=== PATIENT | female | born 1960 | race African-American/Black ===

== ENCOUNTER 2019-09-12 10:43 | Emergency (ER) | payer MEDICARE, MEDICAID, SELFPAY ==
[2019-09-12 10:49] VITALS: BP 125/68; PULSE 70; RESP 18; TEMP 36.9; O2SAT 100
[2019-09-12] MEDS: SODIUM CHLORIDE 0.9% IV 1,000 ML 999 ML IV CONT (12:02)
[2019-09-12] MEDS: FAMOTIDINE 20 MG/2 ML VIAL IV PUSH (12:04)
[2019-09-12] MEDS: methylPREDNISolone SOD SUCC 125 MG VIAL IV PUSH (12:05)
--- NOTE | 2019-09-12 12:07 | ED.ALLEREA ---
HPI - Allergic Reaction General Chief complaint: Allergic Reaction Stated complaint: Swelling top lip Time Seen by Provider: 09/12/19 11:19 Source: patient Mode of arrival: ambulatory Limitations: no limitations History of Present Illness HPI narrative: Patient is a 58-year-old female who presents to emergency department for evaluation of upper lip swelling where she notes some mild discomfort of the lip patient denies injury trauma recent illness or similar occurrence. Patient not taken anything for her symptoms. On arrival per private vehicle patient in the room in no distress. Patient unsure as to any potential causes. Related Data Allergies Allergy/AdvReac Type Severity Reaction Status Date / Time iohexol Allergy Severe Swelling Verified 09/12/19 11:31 [From contrast - CT, X-RAY] of Lip/Tongue/Throat shellfish derived Allergy Severe Swelling Verified 09/12/19 11:31 of Lip/Tongue/Throat latex Allergy Unknown SWELLING/RA Verified 09/12/19 10:51 Review of Systems Review of Systems: All systems reviewed & are unremarkable except as noted in HPI and below PMFSH Past Medical History Medical History (Updated 09/12/19 @ 12:54 by Dio Miller PA-C) Hypertension Social History Social History (Updated 09/12/19 @ 12:09 by Dio Miller PA-C) Smoking status: Never smoker Gender identity (if verbalized by the patient): Female Exam Narrative: Exam Narrative: GENERAL: Well-appearing, well-nourished, and in no acute distress. HEAD: Normocephalic, atraumatic. EYES: PERRLA and EOMI. ENT: Nares clear, no rhinorrhea or epistaxis. Mucous membranes moist. Angioedema of the upper lip oropharynx without tonsillar hypertrophy exudate or other lesions. Bilateral TMs pearly woods nonbulging. No angioedema in the oropharynx NECK: Supple. No adenopathy or masses. No stridor CHEST: Clear to auscultation. No respiratory distress. No wheezes rales or rhonchi HEART: Regular rate and rhythm. No murmur heard. EXTREMITIES: Normal range of motion. No edema. SKIN: Warm, dry, no rash. NEURO: No focal deficits. Alert and oriented x3. PSYCH: Normal mood and affect. Course Consultations Consultation #1: Spoke with Dr. Murguia primary care who would like the patient to hold the medication lisinopril and to follow in clinic will also agreed to be placed on steroids and antihistamines Date: 09/12/19 Vital Signs Vital signs: Vital Signs Temperature 98.5 F 09/12/19 10:49 Pulse Rate 70 09/12/19 10:49 Respiratory Rate 18 09/12/19 10:49 Blood Pressure 125/68 09/12/19 10:49 Pulse Oximetry 100 09/12/19 10:49 Temperature 98.5 F 09/12/19 10:49 Pulse Rate 62 09/12/19 12:11 Respiratory Rate 23 H 09/12/19 12:11 Blood Pressure 107/74 09/12/19 12:11 Pulse Oximetry 98 09/12/19 12:11 Discharge Plan Discharge Clinical Impression: Angioedema Patient Disposition: Home, Self-Care Condition: Stable Instructions: Antibiotic Form, Angioedema (ED) Additional Instructions: Follow up with your primary care provider within 1-2 days to set up for reevaluation. Go to ER for shortness of breath, difficulty breathing, chest pain, fever/chills, weakness, nauseau/vomitting, unable to swallow or open the mouth etc. or any other concerns. Discontinue taking lisinopril Take any prescribed medications as directed. Follow patient education sheets If you do not have a drug allergy to tylenol or motrin and can tolerate it then take tylenol or motrin as needed for discomfort/pain. Prescriptions: New epinephrine [EpiPen 2-Anton] 0.3 mg/0.3 mL auto-injector 0.3 ml SUB-Q ONCE Qty: 2 RF: 0 prednisone 20 mg tablet 20 mg PO BID 4 Days Qty: 8 RF: 0 ranitidine HCl [Zantac] 150 mg tablet 150 mg PO BID Qty: 10 RF: 0 cetirizine [Zyrtec] 10 mg tablet 10 mg PO DAILY PRN (Reason: allergy symptoms) Qty: 10 RF: 0 Follow-up/Referrals: UNKNOWN,DOCTOR [Primary Care Prov
[2019-09-12 12:11] VITALS: BP 107/74; PULSE 62; RESP 23; O2SAT 98
[2019-09-12 13:52] VITALS: BP 114/71; PULSE 71; RESP 23; O2SAT 99
== END 2019-09-12 13:55 | disposition home or self-care (01) ==
PROVIDERS: Emergency Provider Emergency Medicine
DX: T78.3XXA Angioneurotic edema, initial encounter (principal); I10 Essential (primary) hypertension
CPT/HCPCS: 96361; 96374; 96375; 99284; J1200; J2930; J7030

== ENCOUNTER 2020-05-30 10:36 | Emergency (ER) | payer MEDICARE, MEDICAID, SELFPAY ==
--- NOTE | ~2020-05-30 | XR_ITS ---
EXAMINATION: XR chest 1V portable DATE: 05/30/2020 11:32 INDICATION: Fever and cough. TECHNIQUE: A single frontal view of the chest was obtained. COMPARISON: Chest 2 views 06/07/2018 FINDINGS: The chest demonstrates clear lungs without pneumonia, pleural effusion, or pneumothorax. Th e heart size is normal. IMPRESSION: 1. No acute cardiopulmonary disease. Reviewed, dictated and finalized at location A. NOSTIC TECH
[2020-05-30 10:43] VITALS: BP 121/62; PULSE 98; RESP 20; TEMP 36.4; O2SAT 97
--- NOTE | 2020-05-30 11:29 | PC.NURSE ---
Introduced to patient, bedside report from off-going RN.
--- NOTE | 2020-05-30 11:32 | ED.URI ---
HPI - URI/Sore Throat General Chief Complaint: Upper Respiratory Infection Stated Complaint: chills, fever, headache Time Seen by Provider: 05/30/20 11:02 Source: patient Mode of arrival: ambulatory Limitations: no limitations History of Present Illness HPI Narrative: This is a 59-year-old female that presents the emergency department for fever since yesterday. Reports fatigue and congestion as well. Reports headaches. Reports her grandchildren are currently being tested for Covid. Denies cough, chest pain, lower extremity edema, or shortness of breath. Related Data Home Medications Medication Instructions Recorded Confirmed amitriptyline 50 mg PO HS 05/30/20 05/30/20 cyclobenzaprine 10 mg PO DAILY PRN 05/30/20 05/30/20 hydrocodone-acetaminophen 1 tablet PO DAILY PRN 05/30/20 05/30/20 isosorbide mononitrate 30 mg PO DAILY 05/30/20 05/30/20 metformin 500 mg PO BID 05/30/20 05/30/20 metoprolol succinate 50 mg PO 05/30/20 naproxen 500 mg PO BID PRN 05/30/20 05/30/20 sertraline 200 mg PO DAILY 05/30/20 05/30/20 simvastatin 40 mg PO DAILY 05/30/20 05/30/20 topiramate 50 mg PO DAILY 05/30/20 05/30/20 Allergies Allergy/AdvReac Type Severity Reaction Status Date / Time iohexol Allergy Severe Swelling Verified 05/30/20 10:49 [From contrast - CT, X-RAY] of Lip/Tongue/Throat shellfish derived Allergy Severe Swelling Verified 05/30/20 10:49 of Lip/Tongue/Throat latex Allergy Unknown SWELLING/RA Verified 05/30/20 10:49 Review of Systems Review of Systems: Narrative: CONSTITUTIONAL: Denies fever ENT: Reports congestion. Denies sore throat CARDIOVASCULAR: Denies chest pain, or edema. RESPIRATORY: Denies cough or dyspnea. GASTROINTESTINAL: Denies abdominal pain, nausea, vomiting GENITOURINARY: Denies dysuria All systems reviewed & are unremarkable except as noted in HPI and below PMFSH Past Medical History Medical History (Updated 05/30/20 @ 16:38 by Alissa Lopez PA-C) History of diabetes mellitus History of hyperlipidemia Hypertension Social History Social History (Updated 09/12/19 @ 12:09 by Dio Miller PA-C) Smoking status: Never smoker Gender identity (if verbalized by the patient): Female Exam Narrative: Exam Narrative: GENERAL: Well-appearing, obese, and in no acute distress. HEAD: Normocephalic, atraumatic. EYES: EOMI. ENT: Nares clear, no rhinorrhea or epistaxis. Mucous membranes moist. Oropharynx without tonsillar hypertrophy exudate or other lesions. Bilateral TMs pearly woods non-bulging NECK: Supple. No adenopathy or masses. CHEST: Clear to auscultation. No respiratory distress. No wheezes rales or rhonchi HEART: Regular rate and rhythm. No murmur heard. Normal peripheral pulses. ABDOMEN: Soft, nontender, nondistended, normal active bowel sounds. EXTREMITIES: Normal range of motion. No edema. SKIN: Warm, dry, no rash. NEURO: No focal deficits. Alert and oriented x3. PSYCH: Normal mood and affect Course Vital Signs Vital signs: Vital Signs Temperature 97.5 F L 05/30/20 10:43 Pulse Rate 98 05/30/20 10:43 Respiratory Rate 20 05/30/20 10:43 Blood Pressure 121/62 05/30/20 10:43 Pulse Oximetry 97 05/30/20 10:43 Temperature 98.4 F 05/30/20 16:28 Pulse Rate 79 05/30/20 16:28 Respiratory Rate 18 05/30/20 16:28 Blood Pressure 136/86 05/30/20 16:28 Pulse Oximetry 100 05/30/20 16:28 MDM - URI/Sore Throat MDM Narrative Medical decision making narrative: Patient presents to the emergency department for cold symptoms since yesterday. Reports her grandchildren are currently being tested for coronavirus. She is afebrile and nontoxic-appearing. Oxygen saturation has remained normal on room air. CBC with mild leukocytosis to 13.8. Metabolic panel without concerning findings. Lactic acid is not elevated. UA without evidence of infection. Chest x-ray is clear. SARS-CoV-2 was sent. Patient is stable and felt appropriate for [facility]
[2020-05-30 11:56] LABS: Basophils Absolute Auto 0.1 K/mm3 (0.0-0.1); Basophils Percent Auto 0.4 % (0.2-1.2); Eosinophils Percent Auto 0.1 % (0-4.4); Hematocrit 36.3 % (37.0-47.0); Hemoglobin 12.2 g/dL (12.0-15.0); Immature Granulocyte Absolute 0.06 K/mm3 (0.00-0.031); Immature Granulocyte Percent A 0.4 % (0-0.5); Lymphocytes Absolute Auto 0.46 K/mm3 (0.9-3.2); Lymphocytes Percent Auto 3.3 % (18.3-44.2); Mean Corpuscular HGB Conc 33.6 g/dl (32-36); Mean Corpuscular Hemoglobin 26.9 pg (26-34); Mean Corpuscular Volume 80.1 fl (80-100); Mean Platelet Volume 9.5 fl (7.4-10.4); Monocytes Absolute Auto 0.6 K/mm3 (0.1-0.6); Neutrophils Absolute Auto 12.7 K/mm3 (1.3-6.7); Neutrophils Percent Auto 91.8 % (45.5-73.1); Platelet Count Result 228 k/mm3 (150-375); Red Blood Count 4.53 M/mm3 (4.2-5.4); Red Cell Distribution Width 15.3 % (11.5-14.5); White Blood Count 13.8 K/mm3 (4.5-10.0)
[2020-05-30 12:10] LABS: Lactic Acid Reflex 0.8 mmol/L (0.7-2.1)
[2020-05-30 12:13] LABS: Alanine Aminotransferase 19 U/L (4-35); Albumin Level 3.8 g/dL (3.5-5.1); Alkaline Phosphatase 108 U/L (38-126); Anion Gap 9 mmol/L (8-16); Aspartate Amino Transferase 21 U/L (14-36); Bilirubin,Total 0.5 mg/dL (0.2-1.3); Blood Urea Nitrogen 15 mg/dL (7-17); Calcium 8.6 mg/dL (8.4-10.2); Carbon Dioxide 20 mmol/L (22-30); Chloride 107 mmol/L (98-107); Estimated Glomerular Filt Rate > 60; Glucose 136 mg/dL (65-105); Potassium 3.8 mmol/L (3.4-5.0); Sodium 136 mmol/L (137-145)
--- NOTE | 2020-05-30 12:31 | PC.NURSE ---
Patient is on commode attempting to provided urine at this time.
[2020-05-30 12:32] VITALS: BP 104/63; PULSE 83; RESP 22; TEMP 36.1; O2SAT 95
--- NOTE | 2020-05-30 12:36 | PC.NURSE ---
covid swab sent to lab. Patient remains on beside commode to attempt to provide urine. Call light with patient. Haig[place] provided for patient comfort.
[2020-05-30 12:46] LABS: CRP 19.1 mg/dL (<1.0)
[2020-05-30 14:06] VITALS: BP 99/56; PULSE 75; RESP 22; O2SAT 97
[2020-05-30 14:53] VITALS: BP 104/69; PULSE 77; RESP 21; TEMP 36.3; O2SAT 97
[2020-05-30] MEDS: SODIUM CHLORIDE 0.9% IV 1,000 ML 999 ML IV CONT (14:55)
[2020-05-30 15:00] VITALS: O2SAT 97
[2020-05-30 16:28] VITALS: BP 136/86; PULSE 79; RESP 18; TEMP 36.9; O2SAT 100
[2020-05-30 16:30] LABS: Add Urine Microscopic? NO; Appearance Urine Clear (Clear); Bilirubin Urine Negative (Negative); Blood Urine Negative (Negative); Color Urine Straw (Yellow); Glucose Urine UA Negative (Negative); Ketones Urine Negative (Negative); Leukocyte Esterase Ur Negative LEU/UL (Negative); Nitrate Urine Negative (Negative); Protein Urine Negative (Negative); Specific Grav Ur 1.008 (1.001-1.035); Urobilinogen Urine Negative mg/dL (<2.0)
[2020-05-30 21:18] LABS: SARS-CoV-2 RNA PCR Negative
== END 2020-05-30 16:48 | disposition home or self-care (01) ==
PROVIDERS: Physician Assistant; Emergency Provider Emergency Medicine; PCP Family Medicine
DX: R50.9 Fever, unspecified (principal); Z20.828 Contact with and (suspected) exposure to other viral communicable diseases; E11.9 Type 2 diabetes mellitus without complications; E78.5 Hyperlipidemia, unspecified; I10 Essential (primary) hypertension
CPT/HCPCS: 36415; 71045; 80053; 81003; 83605; 85025; 86140; 87635; 96360; 96361; 99283; 99284; C9803; J7030; U0003

== ENCOUNTER 2021-04-28 03:46 | Emergency (ER) | payer MEDICARE, MEDICAID, SELFPAY ==
[2021-04-28] VITALS (19 sets, daily range): BP systolic 121–148; BP diastolic 60–86; PULSE 81; RESP 18; TEMP 37.1; O2SAT 96–100
--- NOTE | ~2021-04-28 | XR_ITS ---
XR chest 2V DATE: 04/28/2021 05:53 INDICATION: Shortness of breath TECHNIQUE: PA and lateral views COMPARISON: 05/30/2020 portable AP chest FINDINGS: Normal heart size. Is aortic arch calcification and mild aortic unfolding. No hilar or medi astinal enlargement. No pulmonary infiltrate or consolidation, pleural effusion or pulmonary vascular congestion or pneumo thorax. IMPRESSION: No active cardiopulmonary disease Aortic atherosclerosis Reviewed, dictated and finalized at location A.
[2021-04-28] MEDS: SODIUM CHLORIDE 0.9% IV 1,000 ML 999 ML IV CONT (05:34)
[2021-04-28 05:41] LABS: Basophils Percent Auto 0.4 % (0.2-1.2); Eosinophils Absolute Auto 0.2 K/mm3 (0-0.3); Eosinophils Percent Auto 2.8 % (0-4.4); Hematocrit 38.1 % (37.0-47.0); Hemoglobin 12.5 g/dL (12.0-15.0); Immature Granulocyte Absolute 0.02 K/mm3 (0.00-0.031); Immature Granulocyte Percent A 0.3 % (0-0.5); Lymphocytes Absolute Auto 1.81 K/mm3 (0.9-3.2); Mean Corpuscular HGB Conc 32.8 g/dl (32-36); Mean Corpuscular Hemoglobin 26.3 pg (26-34); Mean Corpuscular Volume 80.2 fl (80-100); Mean Platelet Volume 9.9 fl (7.4-10.4); Monocytes Absolute Auto 0.7 K/mm3 (0.1-0.6); Monocytes Percent Auto 9.1 % (2.6-8.5); Neutrophils Absolute Auto 4.5 K/mm3 (1.3-6.7); Neutrophils Percent Auto 62.4 % (45.5-73.1); Platelet Count Result 324 k/mm3 (150-375); Red Blood Count 4.75 M/mm3 (4.2-5.4); Red Cell Distribution Width 15.2 % (11.5-14.5); White Blood Count 7.3 K/mm3 (4.5-10.0)
[2021-04-28 05:50] LABS: Alanine Aminotransferase 24 U/L (4-35); Alkaline Phosphatase 90 U/L (38-126); Anion Gap 6 mmol/L (8-16); Aspartate Amino Transferase 22 U/L (14-36); Bilirubin,Total 0.3 mg/dL (0.2-1.3); Blood Urea Nitrogen 12 mg/dL (7-17); Calcium 9.2 mg/dL (8.4-10.2); Carbon Dioxide 26 mmol/L (22-30); Chloride 107 mmol/L (98-107); Estimated CRCL calculation 92 ml/min; Estimated Glomerular Filt Rate > 60; Glucose 188 mg/dL (65-110); Potassium 3.9 mmol/L (3.4-5.0); Sodium 139 mmol/L (137-145)
--- NOTE | 2021-04-28 07:38 | ED.WEAKNESS ---
HPI - Weakness General Chief complaint: Weakness <Avelino Monroe MD - Last Filed: 04/28/21 18:58> Stated complaint: light headed <Avelino Monroe MD - Last Filed: 04/28/21 18:58> Time Seen by Provider: 04/28/21 05:08 <Avelino Monroe MD - Last Filed: 04/28/21 18:58> Source: patient <Avelino Monroe MD - Last Filed: 04/28/21 18:58> History of Present Illness HPI Narrative: Patient presents with not feeling well. Patient ports. She reports she is feeling light headed. She also reports some mild shortness of breath is improving. She denies any focal areas of pain such as chest pain or abdominal pain she denies recent cough or fevers. She denies any urinary symptoms. She does report she does not feel well so wanted to come in and be evaluated. Denies any recent changes in appetite <Avelino Monroe MD - Last Filed: 04/28/21 18:58> Related Data Home medications: Home Medications Medication Instructions Recorded Confirmed amitriptyline 50 mg PO HS 05/30/20 05/30/20 cyclobenzaprine 10 mg PO DAILY PRN 05/30/20 05/30/20 hydrocodone-acetaminophen 1 tablet PO DAILY PRN 05/30/20 05/30/20 isosorbide mononitrate 30 mg PO DAILY 05/30/20 05/30/20 metformin 500 mg PO BID 05/30/20 05/30/20 metoprolol succinate 50 mg PO 05/30/20 naproxen 500 mg PO BID PRN 05/30/20 05/30/20 sertraline 200 mg PO DAILY 05/30/20 05/30/20 simvastatin 40 mg PO DAILY 05/30/20 05/30/20 topiramate 50 mg PO DAILY 05/30/20 05/30/20 <Avelino Monroe MD - Last Filed: 04/28/21 18:58> Allergies/Adverse reactions: Allergies Allergy/AdvReac Type Severity Reaction Status Date / Time iohexol Allergy Severe Swelling Verified 04/28/21 04:38 [From contrast - CT, X-RAY] of Lip/Tongue/Throat shellfish derived Allergy Severe Swelling Verified 04/28/21 04:38 of Lip/Tongue/Throat latex Allergy Unknown SWELLING/RA Verified 04/28/21 04:38 SH <Avelino Monroe MD - Last Filed: 04/28/21 18:58> Review of Systems Review of Systems: CONSTITUTIONAL: Denies fever, chills, or sweats. EYES: Denies visual changes, redness, or discharge. ENT: Denies rhinorrhea, congestion, sore throat, or otalgia. CARDIOVASCULAR: Denies chest pain, palpitations, or edema. RESPIRATORY: Denies cough GASTROINTESTINAL: Denies abdominal pain, nausea, vomiting, or diarrhea. GENITOURINARY: Denies dysuria or hematuria. SKIN: Denies rash or itching. MUSCULOSKELETAL: Denies back pain, joint pain, or myalgia. NEUROLOGIC: Denies headache, numbness, or focal weakness. PSYCHIATRIC: Denies anxiety or depression. <Avelino Monroe MD - Last Filed: 04/28/21 18:58> All systems reviewed & are unremarkable except as noted in HPI and below <Avelino Monroe MD - Last Filed: 04/28/21 18:58> PMFSH Past Medical History Medical History: Medical History History of diabetes mellitus History of hyperlipidemia Hypertension <Avelino Monroe MD - Last Filed: 04/28/21 18:58> Social History Social History: Social History Smoking status: Never smoker Gender identity (if verbalized by the patient): Female <Avelino Monroe MD - Last Filed: 04/28/21 18:58> Exam Narrative: GENERAL: Well-appearing, well-nourished, and in no acute distress. HEAD: Normocephalic, atraumatic. EYES: PERRLA and EOMI. ENT: Nares clear, no rhinorrhea or epistaxis. Mucous membranes moist. NECK: Supple. No masses. No JVD CHEST: Clear to auscultation. No respiratory distress. No wheezes rales or rhonchi HEART: Regular rate and rhythm. No murmur heard. Normal peripheral pulses. ABDOMEN: Soft, nontender, nondistended, normal active bowel sounds. EXTREMITIES: Normal range of motion. No edema. SKIN: Warm, dry, no rash. NEURO: No focal deficits. Alert and oriented x3. PSYCH: Normal mood and affect. <Avelino Monroe MD - Last Filed: 04/28/
[2021-04-28 07:59] LABS: Add Urine Microscopic? YES; Appearance Urine Clear (Clear); Bacteria Urine Trace /hpf; Bilirubin Urine Negative (Negative); Blood Urine Negative (Negative); Color Urine Yellow (Yellow); Glucose Urine UA 2+ mg/dL (Negative); Ketones Urine Negative (Negative); Leukocyte Esterase Ur Negative LEU/UL (Negative); Nitrate Urine Negative (Negative); Protein Urine Negative (Negative); RBC Urine 0-2 /hpf (0-2); Specific Grav Ur 1.011 (1.001-1.035); Squamous Epithelial Cell Urine Rare /hpf (Few); Urobilinogen Urine Negative mg/dL (<2.0); WBC Urine 0-3 /hpf
== END 2021-04-28 08:18 | disposition home or self-care (01) ==
PROVIDERS: Emergency Medicine; Emergency Provider Family Medicine; PCP Family Medicine
DX: R53.1 Weakness (principal); E11.9 Type 2 diabetes mellitus without complications; E78.5 Hyperlipidemia, unspecified; I10 Essential (primary) hypertension; Z79.84 Long term (current) use of oral hypoglycemic drugs
CPT/HCPCS: 36415; 71046; 80053; 81001; 85025; 96360; 99283; J7030

== ENCOUNTER 2021-10-23 02:03 | Emergency (ER) | payer MEDICARE, MEDICAID, SELFPAY ==
[2021-10-23] VITALS (11 sets, daily range): BP systolic 128–169; BP diastolic 82–88; PULSE 61–69; RESP 15–23; TEMP 36.3; O2SAT 98–100
--- NOTE | ~2021-10-23 | CT_ITS ---
EXAMINATION: CT brain wo con INDICATION: Headache COMPARISON: None TECHNIQUE: Standard unenhanced head CT. The dose-length product (DLP) was 605.33 mGy-cm. The mA was a djusted according to patient size. Iterative reconstruction technique was employed. FINDINGS: There is no intracranial hemorrhage, acute infarction, or abnormal mass lesion. The ventric les are normal. There is no abnormal mass effect or midline shift. The woods-white matter differentiat ion is normal. The basal cisterns are patent. The orbits are normal. The paranasal sinuses, mastoids and calvarium are normal. IMPRESSION: 1. No acute intracranial abnormality. Reviewed, dictated and finalized at location A.
[2021-10-23] MEDS: KETOROLAC 30 MG/ML VIAL (*BKC) IV PUSH (02:25)
[2021-10-23] MEDS: SODIUM CHLORIDE 0.9% IV 1,000 ML 999 ML IV CONT (02:25)
[2021-10-23] MEDS: MECLIZINE HCL 25 MG TABLET PO (02:26)
[2021-10-23 02:34] LABS: Basophils Absolute Auto 0.1 K/mm3 (0.0-0.1); Basophils Percent Auto 0.7 % (0.2-1.2); Eosinophils Absolute Auto 0.2 K/mm3 (0-0.3); Eosinophils Percent Auto 3.2 % (0-4.4); Hematocrit 41.7 % (37.0-47.0); Hemoglobin 13.1 g/dL (12.0-15.0); Immature Granulocyte Absolute 0.02 K/mm3 (0.00-0.031); Immature Granulocyte Percent A 0.3 % (0-0.5); Lymphocytes Absolute Auto 2.68 K/mm3 (0.9-3.2); Lymphocytes Percent Auto 35.4 % (18.3-44.2); Mean Corpuscular HGB Conc 31.4 g/dl (32-36); Mean Corpuscular Hemoglobin 25.5 pg (26-34); Mean Corpuscular Volume 81.3 fl (80-100); Mean Platelet Volume 9.6 fl (7.4-10.4); Monocytes Absolute Auto 0.5 K/mm3 (0.1-0.6); Monocytes Percent Auto 7.1 % (2.6-8.5); Neutrophils Absolute Auto 4.1 K/mm3 (1.3-6.7); Neutrophils Percent Auto 53.3 % (45.5-73.1); Platelet Count Result 326 k/mm3 (150-375); Red Blood Count 5.13 M/mm3 (4.2-5.4); White Blood Count 7.6 K/mm3 (4.5-10.0)
[2021-10-23 02:43] LABS: Alanine Aminotransferase 22 U/L (4-35); Albumin Level 4.1 g/dL (3.5-5.1); Alkaline Phosphatase 107 U/L (38-126); Anion Gap 5 mmol/L (8-16); Aspartate Amino Transferase 22 U/L (14-36); Bilirubin,Total 0.2 mg/dL (0.2-1.3); Blood Urea Nitrogen 14 mg/dL (7-17); Calcium 8.8 mg/dL (8.4-10.2); Carbon Dioxide 29 mmol/L (22-30); Chloride 104 mmol/L (98-107); Estimated CRCL calculation 71 ml/min; Estimated Glomerular Filt Rate > 60; Glucose 83 mg/dL (65-110); Potassium 3.6 mmol/L (3.4-5.0); Sodium 138 mmol/L (137-145)
--- NOTE | 2021-10-23 03:52 | ED.GENADULT ---
HPI - General Adult General Chief complaint: Unspecified Stated complaint: MEDICATION MIX UP? Time Seen by Provider: 10/23/21 02:09 History of Present Illness HPI narrative: Patient is a 61-year-old female who presents ER with dizziness. Began tonight. Feels like things are moving. Associate with some mild nausea. Worse when she rolls onto her left side. No numbness or focal weakness in arm or leg. No facial droop or slurred speech. Denies having previous symptoms like this. Reports she is started some gabapentin over the last week and is concerned it may be related to this. Prior to today she been taking the medication without issue. Patient does endorse mild bitemporal headache associated with this. Related Data Home Medications Medication Instructions Recorded Confirmed amitriptyline 50 mg PO HS 05/30/20 05/30/20 cyclobenzaprine 10 mg PO DAILY PRN 05/30/20 05/30/20 isosorbide mononitrate 30 mg PO DAILY 05/30/20 05/30/20 metformin 500 mg PO BID 05/30/20 05/30/20 metoprolol succinate 50 mg PO 05/30/20 naproxen 500 mg PO BID PRN 05/30/20 05/30/20 sertraline 200 mg PO DAILY 05/30/20 05/30/20 topiramate 50 mg PO DAILY 05/30/20 05/30/20 bupropion HCl PO 10/23/21 gabapentin 10/23/21 rosuvastatin mg 10/23/21 Allergies Allergy/AdvReac Type Severity Reaction Status Date / Time iohexol Allergy Severe Swelling Verified 10/23/21 02:18 [From contrast - CT, X-RAY] of Lip/Tongue/Throat shellfish derived Allergy Severe Swelling Verified 10/23/21 02:18 of Lip/Tongue/Throat latex Allergy Unknown SWELLING/RA Verified 10/23/21 02:18 SH lisinopril Allergy Swelling Verified 10/23/21 02:18 Review of Systems Review of Systems: All systems reviewed & are unremarkable except as noted in HPI and below Constitutional: Constitutional: Denies chills, Denies fever(s) and Denies weakness ENT: Reports dizziness, Denies nasal congestion and Denies sore throat Cardiovascular: Cardiovascular: Denies chest pain, Denies rapid heart rate and Denies radiating jaw, neck or arm pain Respiratory: Respiratory: Denies cough, Denies dyspnea and Denies wheezing Gastrointestinal: Gastrointestinal: Denies abdominal pain, Reports nausea and Denies vomiting Neurologic: Reports dizziness, Reports headache(s), Denies focal weakness and Denies numbness PMFSH Past Medical History Medical History History of diabetes mellitus History of hyperlipidemia Hypertension Social History Social History Smoking status: Never smoker Gender identity (if verbalized by the patient): Female Exam Narrative: GENERAL: Well-appearing, well-nourished, and in no acute distress. HEAD: Normocephalic, atraumatic. EYES: PERRL and EOMI. ENT: Mucous membranes moist. TMs normal bilaterally. CHEST: Clear to auscultation. No respiratory distress. HEART: Regular rate and rhythm. Normal peripheral pulses. ABDOMEN: Soft, nontender, nondistended. EXTREMITIES: Normal range of motion. No edema. SKIN: Warm, dry, no rash. NEURO: Alert and oriented x3. PSYCH: Normal mood and affect. Course Course Emergency Course: Patient feels improved after the meclizine. She still will get the occasional sensation of dizziness when she turns her head but is muted from the meclizine and fluids. Feels comfortable discharge home and continuing the medication as well. Vital Signs Vital signs: Vital Signs Temperature 97.4 F L 10/23/21 02:11 Pulse Rate 66 10/23/21 02:11 Respiratory Rate 22 H 10/23/21 02:11 Blood Pressure 169/88 H 10/23/21 02:11 Pulse Oximetry 100 10/23/21 02:11 Temperature 97.4 F L 10/23/21 02:11 Pulse Rate 62 10/23/21 04:02 Respiratory Rate 18 10/23/21 04:02 Blood Pressure 128/82 10/23/21 04:02 Pulse Oximetry 98 10/23/21 04:02 Medical Decision Making Vital Signs Vital Signs: Vital Signs [place]
== END 2021-10-23 04:04 | disposition home or self-care (01) ==
PROVIDERS: Emergency Provider Emergency Medicine; PCP Family Medicine
DX: R42 Dizziness and giddiness (principal); E11.9 Type 2 diabetes mellitus without complications; E78.5 Hyperlipidemia, unspecified; I10 Essential (primary) hypertension; Z79.84 Long term (current) use of oral hypoglycemic drugs
CPT/HCPCS: 36415; 70450; 80053; 85025; 96361; 96374; 99284; A9270; J1885; J7030

== ENCOUNTER 2022-10-22 16:26 | Emergency (ER) | payer MEDICARE, MEDICAID, SELFPAY ==
[2022-10-22] VITALS (24 sets, daily range): BP systolic 105–144; BP diastolic 57–86; PULSE 70–86; RESP 15–28; TEMP 37.3; O2SAT 94–100
--- NOTE | ~2022-10-22 | XR_ITS ---
EXAMINATION: XR chest 2V Exam Date/Time: 10/22/2022 17:02 CDT HISTORY: Left side chest pain, dizziness x today Comparison: 04/28/2021. RESULT: Lines, tubes, and devices: None. Lungs and pleura: Clear. Cardiomediastinal silhouette: Stable. Other: No acute osseous or upper abdominal finding. IMPRESSION: No acute cardiopulmonary process. Reviewed, dictated and finalized at location K.
--- NOTE | 2022-10-22 16:29 | ECG_ITS ---
Measurements Intervals [place] Rate: 79 P: 140 CT: 140 QRS: -8 QRSD: 98 T: -30 QT: 358 QTc: 411 Interpretive Statements SINUS RHYTHM POSSIBLE LEFT ATRIAL ENLARGEMENT [-0.1mV P WAVE IN V1/V2] MISSING LEAD II NO PREVIOUS ECG AVAILABLE FOR COMPARISON Electronically Signed On 10-23-2022 12:09:27 CDT by Caron Hatfield M.D.
[2022-10-22 16:56] LABS: Basophils Absolute Auto 0.1 K/mm3 (0.0-0.1); Basophils Percent Auto 0.4 % (0.2-1.2); Eosinophils Absolute Auto 0.1 K/mm3 (0-0.3); Eosinophils Percent Auto 1.2 % (0-4.4); Hematocrit 41.3 % (37.0-47.0); Hemoglobin 12.9 g/dL (12.0-15.0); Immature Granulocyte Absolute 0.04 K/mm3 (0.00-0.031); Immature Granulocyte Percent A 0.3 % (0-0.5); Lymphocytes Absolute Auto 0.85 K/mm3 (0.9-3.2); Lymphocytes Percent Auto 7.1 % (18.3-44.2); Mean Corpuscular HGB Conc 31.2 g/dl (32-36); Mean Corpuscular Hemoglobin 25.7 pg (26-34); Mean Corpuscular Volume 82.3 fl (80-100); Mean Platelet Volume 9.3 fl (7.4-10.4); Monocytes Absolute Auto 0.1 K/mm3 (0.1-0.6); Neutrophils Absolute Auto 10.8 K/mm3 (1.3-6.7); Platelet Count Result 263 k/mm3 (150-375); Red Blood Count 5.02 M/mm3 (4.2-5.4)
[2022-10-22 17:05] LABS: Alanine Aminotransferase 24 U/L (6-35); Albumin Level 4.1 g/dL (3.5-5.1); Alkaline Phosphatase 114 U/L (38-126); Anion Gap 8 mmol/L (8-16); Aspartate Amino Transferase 24 U/L (14-36); Bilirubin,Total 0.7 mg/dL (0.2-1.3); Blood Urea Nitrogen 12 mg/dL (7-17); Calcium 8.2 mg/dL (8.4-10.2); Carbon Dioxide 26 mmol/L (22-30); Chloride 103 mmol/L (98-107); Estimated Glomerular Filt Rate > 60; Glucose 139 mg/dL (65-110); Potassium 3.8 mmol/L (3.4-5.0); Sodium 137 mmol/L (137-145)
[2022-10-22 17:16] LABS: Troponin I < 0.012 ng/mL (0.000-0.034)
--- NOTE | 2022-10-22 20:08 | ECG_ITS ---
Measurements Intervals [place] Rate: 79 P: 52 FL: 162 QRS: 18 QRSD: 104 T: -5 QT: 367 QTc: 422 Interpretive Statements SINUS RHYTHM NONSPECIFIC T-WAVE ABNORMALITY COMPARED TO ECG 10/22/2022 16:34:01 LEAD II NOW PRESENT Electronically Signed On 10-23-2022 12:09:53 CDT by Caron Hatfield M.D.
--- NOTE | 2022-10-22 20:17 | PC.NURSE ---
Patient called multiple times for room placement, no answer and not seen in waiting room.
[2022-10-22] MEDS: KETOROLAC 15 MG/ML VIAL (*BKC) IV PUSH (21:13)
--- NOTE | 2022-10-22 21:31 | ED.GENADULT ---
HPI - General Adult General Chief complaint: Shortness of Breath/Dyspnea <Alejo Manriquez MD - Last Filed: 10/22/22 22:11> Stated complaint: SOB/CP <Alejo Manriquez MD - Last Filed: 10/22/22 22:11> Time Seen by Provider: 10/22/22 20:08 <Alejo Manriquez MD - Last Filed: 10/22/22 22:11> Source: patient <Alejo Manriquez MD - Last Filed: 10/22/22 22:11> Mode of arrival: ambulatory <Alejo Manriquez MD - Last Filed: 10/22/22 22:11> Limitations: no limitations <Alejo Manriquez MD - Last Filed: 10/22/22 22:11> History of Present Illness HPI narrative: 62-year-old with history of hypertension, diabetes, CAD stent placed in 2006 here with complaints of left-sided chest pain associated with shortness of breath. Patient states that she was carrying bags of groceries in both hands and was going up the steps soon after she got up she was extremely short of breath and having pain. At the time she came to the ER her symptoms much subsided she feels much better. <Alejo Manriquez MD - Last Filed: 10/22/22 22:11> Related Data Home medications: Home Medications Medication Instructions Recorded Confirmed amitriptyline 50 mg tablet 50 mg PO HS 05/30/20 05/30/20 cyclobenzaprine 10 mg tablet 10 mg PO DAILY PRN Back Pain 05/30/20 05/30/20 isosorbide mononitrate 30 mg 30 mg PO DAILY 05/30/20 05/30/20 tablet,extended release 24 hr metformin 500 mg tablet 500 mg PO BID 05/30/20 05/30/20 metoprolol succinate 50 mg 50 mg PO 05/30/20 tablet,extended release 24 hr naproxen 500 mg tablet 500 mg PO BID PRN Back Pain 05/30/20 05/30/20 sertraline 100 mg tablet 200 mg PO DAILY 05/30/20 05/30/20 topiramate 50 mg tablet 50 mg PO DAILY 05/30/20 05/30/20 bupropion HCl 150 mg tablet,12 hr PO 10/23/21 sustained-release gabapentin 300 mg capsule 10/23/21 rosuvastatin 40 mg tablet mg 10/23/21 <Alejo Manriquez MD - Last Filed: 10/22/22 22:11> Allergies/adverse reactions: Allergies Allergy/AdvReac Type Severity Reaction Status Date / Time iohexol Allergy Severe Swelling Verified 10/23/21 02:18 [From contrast - CT, X-RAY] of Lip/Tongue/Throat shellfish derived Allergy Severe Swelling Verified 10/23/21 02:18 of Lip/Tongue/Throat latex Allergy Unknown SWELLING/RA Verified 10/23/21 02:18 SH lisinopril Allergy Swelling Verified 10/23/21 02:18 <Alejo Manriquez MD - Last Filed: 10/22/22 22:11> Review of Systems Review of Systems: All systems reviewed & are unremarkable except as noted in HPI and below <Alejo Manriquez MD - Last Filed: 10/22/22 22:11> Constitutional: Constitutional: Reports no additional constitutional complaints <Alejo Manriquez MD - Last Filed: 10/22/22 22:11> Eyes: Eyes: Reports no additional eye complaints <Alejo Manriquez MD - Last Filed: 10/22/22 22:11> ENT: Reports system reviewed and no additional complaints, except as documented <Alejo Manriquez MD - Last Filed: 10/22/22 22:11> Cardiovascular: Cardiovascular: Reports as per HPI <Alejo Manriquez MD - Last Filed: 10/22/22 22:11> Respiratory: Respiratory: Reports no additional respiratory complaints <Alejo Manriquez MD - Last Filed: 10/22/22 22:11> Gastrointestinal: Gastrointestinal: Reports no additional gastrointestinal complaints <Alejo Manriquez MD - Last Filed: 10/22/22 22:11> Musculoskeletal: Musculoskeletal: Reports no additional musculoskeletal complaints <Alejo Manriquez MD - Last Filed: 10/22/22 22:11> PMFSH Past Medical History Medical History: Medical History History of diabetes mellitus History of hyperlipidemia Hypertension <Alejo Manriquez MD - Last Filed: 10/22/22 22:11> Social History Social History: Social History Smoking status: Never smoker Gender identity (if verbalized by the patient): Female <Alejo Manriquez MD - Last Filed: 10/22/22 22
[2022-10-22 23:14] LABS: Troponin I < 0.012 ng/mL (0.000-0.034)
[2022-10-23 00:12] VITALS: BP 124/74; PULSE 76; RESP 16; O2SAT 98
== END 2022-10-23 00:14 | disposition home or self-care (01) ==
PROVIDERS: Emergency Medicine; Family Medicine; Emergency Provider Emergency Medicine; PCP Family Medicine
DX: R07.9 Chest pain, unspecified (principal); E11.9 Type 2 diabetes mellitus without complications; I10 Essential (primary) hypertension; E78.5 Hyperlipidemia, unspecified; I25.10 Atherosclerotic heart disease of native coronary artery without angina pectoris
CPT/HCPCS: 36415; 71046; 80053; 84484; 85025; 93005; 96374; 99284; J1885

== ENCOUNTER 2023-01-29 11:18 | Observation (INO) | payer MEDICARE, MEDICAID, SELFPAY ==
[2023-01-29] VITALS (57 sets, daily range): BP systolic 125–164; BP diastolic 70–136; PULSE 61–83; RESP 13–28; TEMP 36.6–36.7; O2SAT 93–100; BMI 41.8
[2023-01-29 12:04] LABS: Glucose Point of Care 183 mg/dl (65-105)
--- NOTE | 2023-01-29 13:14 | ED.GENADULT ---
HPI - General Adult General Chief complaint: Unspecified Stated complaint: took additional dose of meds Time Seen by Provider: 01/29/23 11:58 History of Present Illness HPI narrative: Patient is a 62-year-old female presenting after taking too much Trulicity. Patient states that she takes Trulicity every Sunday. She woke up this morning and thought it was Sunday so she took a dose. She then remembered that she had just taken it yesterday. She started to feel lightheaded so she called her PCP who advised that she eat and drink something. Patient states that she drink some soda and ate some bread and then she came in for evaluation. Currently, she states that she feels generally fatigued but she otherwise denies complaints. No pain, numbness or weakness, shortness of breath, fevers. Related Data Home Medications Medication Instructions Recorded Confirmed amitriptyline 50 mg tablet 50 mg PO HS 05/30/20 01/29/23 cyclobenzaprine 10 mg tablet 10 mg PO DAILY PRN Back Pain 05/30/20 01/29/23 isosorbide mononitrate 30 mg 30 mg PO DAILY 05/30/20 01/29/23 tablet,extended release 24 hr metoprolol succinate 50 mg 50 mg PO DAILY 05/30/20 01/29/23 tablet,extended release 24 hr naproxen 500 mg tablet 500 mg PO BID PRN Back Pain 05/30/20 01/29/23 sertraline 100 mg tablet 100 mg PO Q12H 05/30/20 01/29/23 topiramate 50 mg tablet 50 mg PO HS 05/30/20 01/29/23 bupropion HCl 150 mg tablet,12 hr 150 mg PO BID 10/23/21 01/29/23 sustained-release rosuvastatin 40 mg tablet 40 mg PO HS 10/23/21 01/29/23 aspirin 325 mg tablet 325 mg PO DAILY 01/29/23 01/29/23 dulaglutide 3 mg/0.5 mL 3 mg subcut WEEKLY 01/29/23 01/29/23 subcutaneous pen injector (Trulicity) hydrocodone 5 mg-acetaminophen 325 1 tablet PO Q12H 01/29/23 01/29/23 mg tablet pregabalin 100 mg capsule 100 mg PO Q12H 01/29/23 01/29/23 Allergies Allergy/AdvReac Type Severity Reaction Status Date / Time iohexol Allergy Severe Swelling Verified 01/29/23 11:37 [From contrast - CT, X-RAY] of Lip/Tongue/Throat shellfish derived Allergy Severe Swelling Verified 01/29/23 11:37 of Lip/Tongue/Throat latex Allergy Unknown SWELLING/RA Verified 01/29/23 11:37 SH lisinopril Allergy Swelling Verified 01/29/23 11:37 Review of Systems Review of Systems: All systems reviewed & are unremarkable except as noted in HPI and below PMFSH Past Medical History Medical History (Updated 02/05/23 @ 14:04 by Janessa Hearn MD) Coronary artery disease Depression with anxiety Glaucoma Hyperlipidemia Hypertension Obstructive sleep apnea Type 2 diabetes mellitus Surgical History Surgical History (Updated 01/29/23 @ 23:00 by Aster Palma PA-C) History of cardiac catheterization (2006) History of colonoscopy with polypectomy History of coronary artery stent placement History of hysterectomy Family History Family History (Updated 01/29/23 @ 23:00 by Aster Palma PA-C) Other Diabetes mellitus Hypertension Social History Social History (Updated 01/30/23 @ 17:47 by Aster Palma PA-C) Social History: Surrogate medical decision maker: Deanna Avila, daughter. Code status: Full code. Smoking packs per day: 0.25 Smoking cigarettes per day: 5.0 Smoking status: Current every day smoker Tobacco type: cigarettes Alcohol intake: never Substance use: never Lack of Transportation: No Lack of Food: Never True Current Housing: I Have Housing Concerned About Future Housing: No Difficulty Paying Gas/Electric Bills: No Difficulty Paying for Meds: No Currently Unemployed: No Education: High School Diploma/GED Difficulty w/ Childcare or Family Care: No Additional living arrangements comments: Lives with spouse in [place]. Spiritual care concerns: No Exam Narrative: GENERAL: Well-appearing, well-nourished, and in no acute distress. Pleasant and cooperative HEAD: Normocephalic, atraumatic. EYES: PERRLA
[2023-01-29] MEDS: SODIUM CHLORIDE 0.9% IV 1,000 ML 999 ML IV CONT (13:25)
[2023-01-29 13:39] LABS: Basophils Percent Auto 0.7 % (0.2-1.2); Eosinophils Absolute Auto 0.2 K/mm3 (0-0.3); Eosinophils Percent Auto 4.1 % (0-4.4); Hemoglobin 13.8 g/dL (12.0-15.0); Immature Granulocyte Absolute 0.02 K/mm3 (0.00-0.031); Immature Granulocyte Percent A 0.3 % (0-0.5); Lymphocytes Absolute Auto 2.11 K/mm3 (0.9-3.2); Lymphocytes Percent Auto 35.6 % (18.3-44.2); Mean Corpuscular HGB Conc 32.1 g/dl (32-36); Mean Corpuscular Hemoglobin 25.7 pg (26-34); Mean Corpuscular Volume 80.2 fl (80-100); Mean Platelet Volume 10.3 fl (7.4-10.4); Monocytes Absolute Auto 0.6 K/mm3 (0.1-0.6); Monocytes Percent Auto 10.6 % (2.6-8.5); Neutrophils Absolute Auto 2.9 K/mm3 (1.3-6.7); Neutrophils Percent Auto 48.7 % (45.5-73.1); Platelet Count Result 343 k/mm3 (150-375); Red Blood Count 5.36 M/mm3 (4.2-5.4); Red Cell Distribution Width 16.6 % (11.5-14.5); White Blood Count 5.9 K/mm3 (4.5-10.0)
[2023-01-29 14:09] LABS: Glucose Point of Care 84 mg/dl (65-105)
[2023-01-29 14:10] LABS: Alanine Aminotransferase 26 U/L (6-35); Albumin Level 3.9 g/dL (3.5-5.1); Alkaline Phosphatase 86 U/L (38-126); Anion Gap 0 mmol/L (8-16); Aspartate Amino Transferase 26 U/L (14-36); Bilirubin,Total 0.3 mg/dL (0.2-1.3); Blood Urea Nitrogen 9 mg/dL (7-17); Calcium 8.5 mg/dL (8.4-10.2); Carbon Dioxide 29 mmol/L (22-30); Chloride 108 mmol/L (98-107); Estimated CRCL calculation 79 ml/min; Estimated Glomerular Filt Rate > 60; Glucose 91 mg/dL (65-110); Potassium 4.4 mmol/L (3.4-5.0); Sodium 137 mmol/L (137-145)
[2023-01-29 16:18] LABS: Glucose Point of Care 68 mg/dl (65-105)
[2023-01-29 16:18] LABS: Glucose Point of Care 74 mg/dl (65-105)
[2023-01-29 19:20] LABS: Glucose Point of Care 119 mg/dl (65-105)
--- NOTE | 2023-01-29 20:04 | PM.IMHP ---
H&P: HPI History of Present Illness Date/Time: 01/29/23 21:00 Chief Complaint: Accidental overdose. Narrative: This is a pleasant 62-year-old female with type 2 diabetes mellitus, coronary artery disease, hypertension, hyperlipidemia, and sleep apnea who presented to the emergency department via private vehicle from home for evaluation after an accidental medication overdose. She takes Trulicity once a week on Sundays and took her dose yesterday. When she got up this morning she thought it was Sunday and took another dose and unfortunately she realized that after giving herself the injection. She contacted her doctor and was sent to the ER for evaluation. Random glucose on arrival was 183 after having a soda and eating some food. Over the next several hours her glucose went from 183 to 68 and the decision was made to admit the patient were to overnight for close glucose monitoring given the long half-life of this drug. At the time my evaluation she is resting comfortably and has no complaints. Review of Systems Review of Systems: Twelve systems were reviewed. No fever, chills, or sweats. No recent cold or flu symptoms. No chest pain shortness a breath. No nausea, vomiting, diarrhea, or dysuria. Except as documented, all other systems were reviewed and are negative. [facility] Past Medical History Medical History (Updated 01/29/23 @ 23:02 by Aster Palma PA-C) Coronary artery disease Depression with anxiety Glaucoma Hyperlipidemia Hypertension Obstructive sleep apnea Type 2 diabetes mellitus Surgical History Surgical History (Updated 01/29/23 @ 23:00 by Aster Palma PA-C) History of cardiac catheterization (2006) History of colonoscopy with polypectomy History of coronary artery stent placement History of hysterectomy Family History Family History (Updated 01/29/23 @ 23:00 by Aster Palma PA-C) Other Diabetes mellitus Hypertension Social History Social History (Updated 01/30/23 @ 17:47 by Aster Palma PA-C) Social History: Surrogate medical decision maker: Deanna Avila, daughter. Code status: Full code. Smoking packs per day: 0.25 Smoking cigarettes per day: 5.0 Smoking status: Current every day smoker Tobacco type: cigarettes Alcohol intake: never Substance use: never Lack of Transportation: No Lack of Food: Never True Current Housing: I Have Housing Concerned About Future Housing: No Difficulty Paying Gas/Electric Bills: No Difficulty Paying for Meds: No Currently Unemployed: No Education: High School Diploma/GED Difficulty w/ Childcare or Family Care: No Additional living arrangements comments: Lives with spouse in [place]. Spiritual care concerns: No Meds Home Medications and Allergies Home Medications Medication Instructions Recorded Confirmed Type amitriptyline 50 mg tablet 50 mg PO HS 05/30/20 01/29/23 History cyclobenzaprine 10 mg tablet 10 mg PO DAILY PRN Back Pain 05/30/20 01/29/23 History isosorbide mononitrate 30 mg 30 mg PO DAILY 05/30/20 01/29/23 History tablet,extended release 24 hr metoprolol succinate 50 mg 50 mg PO DAILY 05/30/20 01/29/23 History tablet,extended release 24 hr naproxen 500 mg tablet 500 mg PO BID PRN Back Pain 05/30/20 01/29/23 History sertraline 100 mg tablet 100 mg PO Q12H 05/30/20 01/29/23 History topiramate 50 mg tablet 50 mg PO HS 05/30/20 01/29/23 History bupropion HCl 150 mg tablet,12 hr 150 mg PO BID 10/23/21 01/29/23 History sustained-release rosuvastatin 40 mg tablet 40 mg PO HS 10/23/21 01/29/23 History aspirin 325 mg tablet 325 mg PO DAILY 01/29/23 01/29/23 History dulaglutide 3 mg/0.5 mL 3 mg subcut WEEKLY 01/29/23 01/29/23 History subcutaneous pen injector (Trulicity) hydrocodone 5 mg-acetaminophen 325 1 tablet PO Q12H 01/29/23 01/29/23 History mg tablet pregabalin 100 mg capsule 100 mg PO Q12H 01/29/23 01/29/23 History [facility] 01/20
--- NOTE | 2023-01-29 20:55 | ADMGEN ---
This patient, Anat Han, was admitted to IMU Room 213-01. Patient/family oriented to hospital policies and general routines including ID bracelet, bed and alarms, visiting hours, pain management, procedures, bathroom and other care routines, personal items, smoking policy, room service/diet, and visiting hours. Information on how to activate the Rapid Response Team has been discussed. Patient/Family are encouraged to report perceived risks to care and to ask questions if they do not understand what they are told or what they should do.
[2023-01-29 21:29] LABS: Glucose Point of Care 93 mg/dl (65-105)
[2023-01-29 22:08] LABS: Glucose Point of Care 92 mg/dl (65-105)
[2023-01-29 23:22] LABS: Hemoglobin A1C 7.1 % (<5.7)
[2023-01-29 23:41] LABS: Glucose Point of Care 132 mg/dl (65-105)
[2023-01-30] VITALS (11 sets, daily range): BP systolic 121–153; BP diastolic 72–80; PULSE 56–69; RESP 12–20; TEMP 35.8–36.1; O2SAT 96–100
[2023-01-30 00:12] LABS: Glucose Point of Care 128 mg/dl (65-105)
[2023-01-30] MEDS: PREGABALIN (*CRX) 50 MG CAPSULE 100 MG PO ×2 (00:20→08:09)
[2023-01-30] MEDS: ROSUVASTATIN 10 MG TABLET 40 MG PO (00:20)
[2023-01-30] MEDS: TOPIRAMATE 25 MG TABLET 50 MG PO (00:20)
[2023-01-30] MEDS: AMITRIPTYLINE HCL 25 MG TABLET 50 MG PO (00:21)
[2023-01-30] MEDS: SERTRALINE HCL 50 MG TABLET 100 MG PO ×2 (00:21→08:10)
[2023-01-30] MEDS: buPROPion HCL SR (12 HR) 150 MG TAB PO ×2 (00:21→08:10)
[2023-01-30 01:06] LABS: Glucose Point of Care 86 mg/dl (65-105)
[2023-01-30] MEDS: DEXTROSE 5% 1,000 ML 1,000 ML 50 ML IV CONT (01:12)
[2023-01-30 02:12] LABS: Glucose Point of Care 95 mg/dl (65-105)
[2023-01-30 03:08] LABS: Glucose Point of Care 98 mg/dl (65-105)
[2023-01-30 04:04] LABS: Glucose Point of Care 103 mg/dl (65-105)
[2023-01-30 05:02] LABS: Hematocrit 43.4 % (37.0-47.0); Hemoglobin 13.4 g/dL (12.0-15.0); Mean Corpuscular HGB Conc 30.9 g/dl (32-36); Mean Corpuscular Hemoglobin 25.5 pg (26-34); Mean Corpuscular Volume 82.5 fl (80-100); Mean Platelet Volume 10.5 fl (7.4-10.4); Platelet Count Result 269 k/mm3 (150-375); Red Blood Count 5.26 M/mm3 (4.2-5.4); Red Cell Distribution Width 16.7 % (11.5-14.5); White Blood Count 6.2 K/mm3 (4.5-10.0)
[2023-01-30 05:17] LABS: Anion Gap 3 mmol/L (8-16); Blood Urea Nitrogen 8 mg/dL (7-17); Calcium 8.8 mg/dL (8.4-10.2); Carbon Dioxide 25 mmol/L (22-30); Chloride 106 mmol/L (98-107); Estimated CRCL calculation 92 ml/min; Estimated Glomerular Filt Rate > 60; Glucose 112 mg/dL (65-110); Magnesium 2.3 mg/dL (1.6-2.3); Sodium 134 mmol/L (137-145)
[2023-01-30 06:04] LABS: Glucose Point of Care 123 mg/dl (65-105)
[2023-01-30 08:05] LABS: Glucose Point of Care 179 mg/dl (65-105)
[2023-01-30] MEDS: ASPIRIN 325 MG TABLET PO (08:09)
[2023-01-30] MEDS: ISOSORBIDE MONONITRATE 30 MG TAB.ER.24H PO (08:10)
[2023-01-30] MEDS: METOPROLOL SUCCINATE EXT REL 50 MG TABCR PO (08:15)
[2023-01-30 09:26] LABS: Glucose Point of Care 258 mg/dl (65-105)
[2023-01-30 11:24] LABS: Glucose Point of Care 100 mg/dl (65-105)
[2023-01-30 13:39] LABS: Glucose Point of Care 163 mg/dl (65-105)
--- NOTE | 2023-01-30 15:05 | PM.DS ---
DS: Admitting Diagnosis Discharge Date 01/30/2023 Admitting Diagnosis Accidental overdose of insulin DS: Discharge Diagnosis Discharge Diagnosis (1) Accidental medication overdose: Code(s): T50.901A - Poisoning by unspecified drugs, medicaments and biological substances, accidental (unintentional), initial encounter Status: Acute (2) Hypoglycemia: Code(s): E16.2 - Hypoglycemia, unspecified Status: Acute (3) Depression with anxiety: Code(s): F41.8 - Other specified anxiety disorders Status: Acute DS: Summary Hospital Course Hospital Course: The patient presented to the emergency department for evaluation after she accidentally took an extra dose of Trulicity today in addition to the dose she took yesterday. Labs, imaging, EKG, and all reports were personally reviewed. ED physician spoke to the pharmacist and due to the long half-life of Trulicity it was decided that she should be admitted overnight for close glucose monitoring as her glucose continues to fall despite oral intake and IV dextrose. She has been started on D5 with Q hourly Accu-Cheks until stable. sugars are stable home dm medications resumed on dc. Time Spent with Patient Time attestation: Total time spent providing and/or coordinating discharge services:40 minutes on day of dc Exam Const: Other: Well-developed female in the semi-Rider position in bed in no distress. Weight: 114.1 kg. BMI: 41.9. HENMT: Other: Normocephalic, atraumatic. Nares patent bilaterally. Oral mucosa moist. Oropharynx crowded. Eyes: Other: Pupils are reactive. Extraocular motions intact. Sclerae anicteric. Neck: Other: Supple. Exam limited due to neck circumference. Resp: Other: Respirations are nonlabored and lungs are clear to auscultation. Cardio: Other: Regular rate rhythm with normal S1-S2. GI: Other: Abdomen is soft, obese, nontender, and nondistended with positive bowel sounds. Skin: Other: Warm and dry. Neuro: Other: Alert. Cranial nerves 2-12 are grossly intact. No gross focal deficits to casual conversation. Extrem: Other: No cyanosis, clubbing, or edema. Peripheral pulses intact. Psych: Other: Pleasant and cooperative. Appropriate mood and affect. DS: Data Data Completed and Pending Labs on day of discharge: Labs from last 24 hours 0701/30/23 01/30/23 13:33 11:17 09:23 WBC RBC Hgb Hct MCV MCH MCHC RDW Plt Count MPV Sodium Potassium Chloride Carbon Dioxide Anion Gap BUN Creatinine Estim Creat Clear Calc Estimated GFR Glucose POC Capillary Glucose 163 H 100 258 H Hemoglobin A1c Calcium Magnesium 01/30/23 01/30/23 01/30/23 07:59 06:01 04:49 WBC 6.2 RBC 5.26 Hgb 13.4 Hct 43.4 MCV 82.5 MCH 25.5 L MCHC 30.9 L RDW 16.7 H Plt Count 269 MPV 10.5 H Sodium 134 L Potassium 4.0 Chloride 106 Carbon Dioxide 25 Anion Gap 3 L BUN 8 Creatinine 0.70 Estim Creat Clear Calc 92 Estimated GFR > 60 Glucose 112 H POC Capillary Glucose 179 H 123 H Hemoglobin A1c Calcium 8.8 Magnesium 2.3 01/30/23 01/30/23 01/30/23 04:00 02:52 02:01 WBC RBC Hgb Hct MCV MCH MCHC RDW Plt Count MPV Sodium Potassium Chloride Carbon Dioxide Anion Gap BUN Creatinine Estim Creat Clear Calc Estimated GFR Glucose POC Capillary Glucose 103 98 95 Hemoglobin A1c Calcium Magnesium 01/30/23 01/30/23 01/29/23 01:04 00:08 23:06 WBC RBC Hgb Hct MCV MCH MCHC RDW Plt Count MPV Sodium Potassium Chloride Carbon Dioxide Anion Gap BUN Creatinine Estim Creat Clear Calc Estimated GFR Glucose POC Capillary Glucose 86 128 H 132 H Hemoglobin A1c
== END 2023-01-30 15:30 | disposition home or self-care (01) ==
LOC: ANHED 11:58 → ANHIMU 22:27
PROVIDERS: Physician Assistant; Admitting Provider Internal Medicine; Emergency Provider Emergency Medicine; PCP Family Medicine; Visit Provider Family Medicine
DX: T50.991A Poisoning by other drugs, medicaments and biological substances, accidental (unintentional), initial encounter (principal); E11.649 Type 2 diabetes mellitus with hypoglycemia without coma; F41.8 Other specified anxiety disorders; I10 Essential (primary) hypertension; I25.10 Atherosclerotic heart disease of native coronary artery without angina pectoris; G47.33 Obstructive sleep apnea (adult) (pediatric); E78.5 Hyperlipidemia, unspecified; H40.9 Unspecified glaucoma; F17.210 Nicotine dependence, cigarettes, uncomplicated; Z79.84 Long term (current) use of oral hypoglycemic drugs; Z79.1 Long term (current) use of non-steroidal anti-inflammatories (NSAID); Z79.82 Long term (current) use of aspirin; Z79.85 Long-term (current) use of injectable non-insulin antidiabetic drugs; Z79.891 Long term (current) use of opiate analgesic; Z79.899 Other long term (current) drug therapy
CPT/HCPCS: 36415; 80048; 80053; 82948; 83036; 83735; 85025; 85027; 96361; 96374; 99285; A9270; G0378; J7030; J7070

== ENCOUNTER 2023-06-03 14:10 | Emergency (ER) | payer MEDICARE, MEDICAID, SELFPAY ==
[2023-06-03 14:14] VITALS: BP 152/78; PULSE 84; RESP 16; TEMP 37; O2SAT 96
--- NOTE | 2023-06-03 14:56 | ED.SKABFB ---
HPI - Skin/Abscess/Foreign Bdy General Chief complaint: Skin/Abscess/Foreign Body Stated complaint: foreign body Time Seen by Provider: 06/03/23 14:23 History of Present Illness HPI narrative: 62-year-old female presenting with irritation of the injection site. States that she gave herself her Trulicity injection earlier today. States that it hurt more than normal so she jumped as she was doing it. The needle retracted normally but she was concerned that there was an air pocket at the site of injection so she came in for evaluation. States that there is some pain at the site but she denies other complaints. Related Data Home Medications Medication Instructions Recorded Confirmed amitriptyline 50 mg tablet 50 mg PO HS 05/30/20 01/29/23 cyclobenzaprine 10 mg tablet 10 mg PO DAILY PRN Back Pain 05/30/20 01/29/23 isosorbide mononitrate 30 mg 30 mg PO DAILY 05/30/20 01/29/23 tablet,extended release 24 hr metoprolol succinate 50 mg 50 mg PO DAILY 05/30/20 01/29/23 tablet,extended release 24 hr naproxen 500 mg tablet 500 mg PO BID PRN Back Pain 05/30/20 01/29/23 sertraline 100 mg tablet 100 mg PO Q12H 05/30/20 01/29/23 topiramate 50 mg tablet 50 mg PO HS 05/30/20 01/29/23 bupropion HCl 150 mg tablet,12 hr 150 mg PO BID 10/23/21 01/29/23 sustained-release rosuvastatin 40 mg tablet 40 mg PO HS 10/23/21 01/29/23 aspirin 325 mg tablet 325 mg PO DAILY 01/29/23 01/29/23 dulaglutide 3 mg/0.5 mL 3 mg subcut WEEKLY 01/29/23 01/29/23 subcutaneous pen injector (Trulicity) hydrocodone 5 mg-acetaminophen 325 1 tablet PO Q12H 01/29/23 01/29/23 mg tablet pregabalin 100 mg capsule 100 mg PO Q12H 01/29/23 01/29/23 Allergies Allergy/AdvReac Type Severity Reaction Status Date / Time iohexol Allergy Severe Swelling Verified 06/03/23 14:45 [From contrast - CT, X-RAY] of Lip/Tongue/Throat shellfish derived Allergy Severe Swelling Verified 06/03/23 14:45 of Lip/Tongue/Throat latex Allergy Unknown SWELLING/RA Verified 06/03/23 14:45 SH lisinopril Allergy Swelling Verified 06/03/23 14:45 Review of Systems Review of Systems: All systems reviewed & are unremarkable except as noted in HPI and below PMFSH Past Medical History Medical History Coronary artery disease Depression with anxiety Glaucoma Hyperlipidemia Hypertension Obstructive sleep apnea Type 2 diabetes mellitus Surgical History Surgical History History of cardiac catheterization (2006) History of colonoscopy with polypectomy History of coronary artery stent placement History of hysterectomy Family History Family History Other Diabetes mellitus Hypertension Social History Social History Social History: Surrogate medical decision maker: Deanna Avila, daughter. Code status: Full code. Smoking packs per day: 0.25 Smoking cigarettes per day: 5.0 Smoking status: Current every day smoker Tobacco type: cigarettes Alcohol intake: never Substance use: never Lack of Transportation: No Lack of Food: Never True Current Housing: I Have Housing Concerned About Future Housing: No Difficulty Paying Gas/Electric Bills: No Difficulty Paying for Meds: No Currently Unemployed: No Education: High School Diploma/GED Difficulty w/ Childcare or Family Care: No Additional living arrangements comments: Lives with spouse in [place]. Spiritual care concerns: No Exam Narrative: GENERAL: Well-appearing, in no acute distress, pleasant and cooperative HEAD: Normocephalic, atraumatic. EYES: PERRLA and EOMI. ENT: Grossly unremarkable NECK: Supple. CHEST: No respiratory distress. HEART: Regular rate and rhythm. ABDOMEN: Soft, pinpoint injection in RLQ with no subcutaneous emphysema
[2023-06-03 15:51] VITALS: BP 143/77; PULSE 72; RESP 18; O2SAT 99
== END 2023-06-03 15:53 | disposition home or self-care (01) ==
PROVIDERS: Emergency Provider Emergency Medicine; PCP Family Medicine
DX: R10.31 Right lower quadrant pain (principal); I25.10 Atherosclerotic heart disease of native coronary artery without angina pectoris; E11.39 Type 2 diabetes mellitus with other diabetic ophthalmic complication; H40.9 Unspecified glaucoma; H42 Glaucoma in diseases classified elsewhere; G47.33 Obstructive sleep apnea (adult) (pediatric); F41.8 Other specified anxiety disorders; F17.210 Nicotine dependence, cigarettes, uncomplicated; Z95.5 Presence of coronary angioplasty implant and graft; Z90.710 Acquired absence of both cervix and uterus; Z79.85 Long-term (current) use of injectable non-insulin antidiabetic drugs
CPT/HCPCS: 99281